=== PATIENT | female | born 1985 | race Caucasian/White ===

== ENCOUNTER 2019-06-23 23:03 | Emergency (ER) | payer SELFPAY ==
--- NOTE | 2019-06-23 23:20 | EDM.PDOC ---
ED HPI GENERAL MEDICAL PROBLEM - General Chief Complaint: [employer] Problem Stated Complaint: POSSIBLE MISCARRIAGE Time Seen by Provider: 06/23/19 23:17 Source of Information: Reports: Patient History Limitations: Reports: No Limitations - History of Present Illness INITIAL COMMENTS - FREE TEXT/NARRATIVE: History of present illness: [Patient is a G3, P2 who presents with suspected miscarriage. She states that she estimates that she is about 8 weeks by date. She is supposed to have an ultrasound next week. She started having bleeding with clots, heavier than a period, around 5 PM this evening. She has some associated cramping, seems to be generalized in the lower abdomen, no specific or unilateral pain associated with it. Denies previous miscarriage or . Denies any known clotting or bleeding disorders. Denies chest pain, shortness of breath, fever, known COVID-19 exposure.] Review of systems: As per history of present illness and below otherwise all systems reviewed and negative. Past medical history: As per history of present illness and as reviewed below otherwise noncontributory. Surgical history: As per history of present illness and as reviewed below otherwise noncontributory. Social history: No reported history of drug or alcohol abuse. Family history: As per history of present illness and as reviewed below otherwise noncontributory. Physical exam: General: Awake, alert, no acute distress, A&O X3. HEENT: Atraumatic, normocephalic, pupils reactive, negative for conjunctival pallor or scleral icterus, mucous membranes moist, throat clear, neck supple, nontender, trachea midline. Lungs: Clear to auscultation, breath sounds equal bilaterally, chest nontender. Heart: RRR, normal S1S2, no JVD. Abdomen: Soft, nondistended, nontender. Negative for masses or hepatosplenomegaly. Negative for costovertebral tenderness. Pelvis: Stable nontender. Genitourinary: Warehouse Checker: ELISSA Major. Pelvic exam shows dark red blood with clots slowly oozing from cervical os. no bright red blood or vaginal lesions noted. Rectal: Deferred. Extremities: Atraumatic, no edema, Neurovascular unremarkable. Neuro: Motor and sensory grossly intact throughout. Exam nonfocal. Diagnostics: [] Therapeutics: [] Impression: [] Plan: [] Definitive disposition and diagnosis as appropriate pending reevaluation and review of above. abdomen Pain Score (Numeric/FACES): 4 - Related Data Allergies Allergy/AdvReac Type Severity Reaction Status Date / Time No Known Allergies Allergy Verified 06/23/19 23:18 Home Meds: Home Meds Nitrofurantoin Monohyd/M-Cryst [Macrobid 100 mg Capsule] 100 mg PO BID #10 capsule 06/24/19 [Rx] Past Medical History - Past Health History Medical/Surgical History: Denies Medical/Surgical History - Infectious Disease History Infectious Disease History: Reports: Chicken Pox Social & Family History - Family History Family Medical History: Noncontributory - Caffeine Use Caffeine Use: Reports: Coffee ED ROS GENERAL - Review of Systems Review Of Systems: Comprehensive ROS is negative, except as noted in HPI. ED EXAM - Physical Exam Exam: See Below (see h and p) Course - Vital Signs Text/Narrative:: Ultrasound suggest the patient is undergoing a miscarriage. Thickened endometrial stripe. Appears to have products of conception near the cervix. No evidence for ectopic . Pelvic exam performed is also consistent with a miscarriage, shows dark blood with clots slowly oozing from cervical office. Remainder the patient's blood work is largely unremarkable. Her vital signs are reassuring, she is otherwise well-appearing and nontoxic. I informed her that she needed to get repeat quantitative hCG testing done in about 48 hours. Her level here today was about 3200. Her Rh status is negative. She received a dose of RhoGam here. I also encouraged her to follow-up with [employer] , she has an appointment scheduled in 2 weeks, I told her she should try and have one scheduled sooner if possible. Notably there is any indication for admission at this time. Strict return precautions were provided. Should she develop new or worsening symptoms including brisk vaginal bleeding, severe pain , syncope, high fever, etc. Urinalysis was positive for nitrites. I informed the patient that I would send over prescription to cover possible UTI, although I believe it is likely just a contaminant from her miscarriage. Patient understands the plan and is agreeable with it and well-appearing at the time of discharge. Last Recorded V/S: Last Vital Signs Temp 36.5 C 06/24/19 01:12 Pulse 88 06/24/19 01:12 Resp 17 06/24/19 01:12 BP 109/61 06/24/19 01:12 Pulse Ox 97 06/23/19 23:13 - Orders/Labs/Meds Labs: Laboratory Tests 06/23/19 06/23/19 06/23/19 Range/Units 23:16 23:27 23:27 WBC 9.55 (4.0-11.0) K/uL RBC 4.33 (4.30-5.90) M/uL Hgb 13.5 (12.0-16.0) g/dL Hct 40.5 (36.0-46.0) % MCV 93.5 (80.0-98.0) fL MCH 31.2 (27.0-32.0) pg MCHC 33.3 (31.0-37.0) g/dL RDW Std Deviation 45.6 (28.0-62.0) fl RDW Coeff of Stacy 13 (11.0-15.0) % Plt Count 220 (150-400) K/uL MPV 9.90 (7.40-12.00) fL Neut % (Auto) 73.6 (48.0-80.0) % Lymph % (Auto) 17.7 (16.0-40.0) % [place] % (Auto) 6.8 (0.0-15.0) % Eos % (Auto) 1.7 (0.0-7.0) % Baso % (Auto) 0.2 (0.0-1.5) % Neut # (Auto) 7.0 H (1.4-5.7) K/uL Lymph # (Auto) 1.7 (0.6-2.4) K/uL [place] # (Auto) 0.7 (0.0-0.8) K/uL Eos # (Auto) 0.2 (0.0-0.7) K/uL Baso # (Auto) 0.0 (0.0-0.1) K/uL Nucleated RBC % 0.0 /100WBC Nucleated RBCs # 0 K/uL Sodium 138 (136-145) mmol/L Potassium 3.7 (3.5-5.1) mmol/L Chloride 102 (98-107) mmol/L Carbon Dioxide 23.3 (21.0-32.0) mmol/L BUN 8 (7.0-18.0) mg/dL Creatinine 0.6 (0.6-1.0) mg/dL Est Cr Clr Drug Dosing 106.46 mL/min Estimated GFR (MDRD) > 60.0 ml/min Glucose 127 H (74-106) mg/dL Calcium 8.8 (8.5-10.1) mg/dL HCG, Quant 3208.0 mIU/mL Urine Color RED Urine Appearance SLT CLOUDY Urine pH 5.0 (5.0-8.0) Ur Specific [place] >= 1.030 (1.001-1.035) Urine Protein 100 H (NEGATIVE) mg/dL Urine Glucose (UA) NEGATIVE (NEGATIVE) mg/dL Urine Ketones 15 H (NEGATIVE) mg/dL Urine Occult Blood LARGE H (NEGATIVE) Urine Nitrite POSITIVE H (NEGATIVE) Urine Bilirubin NEGATIVE (NEGATIVE) Urine Urobilinogen 1.0 (<2.0) EU/dL Ur Leukocyte Esterase SMALL H (NEGATIVE) Urine RBC TOO NUMEROUS TO CT H (0-2/HPF) Urine WBC 0-5 (0-5/HPF) Ur Epithelial Cells OCCASIONAL (NONE-FEW) Urine Bacteria FEW (NEGATIVE) Urinalysis Comment Blood Type Antibody Screen Rhogam Indicated 06/23/19 Range/Units 23:27 WBC (4.0-11.0) K/uL RBC (4.30-5.90) M/uL Hgb (12.0-16.0) g/dL Hct (36.0-46.0) % MCV (80.0-98.0) fL MCH (27.0-32.0) pg MCHC (31.0-37.0) g/dL RDW Std Deviation (28.0-62.0) fl RDW Coeff of Stacy (11.0-15.0) % Plt Count (150-400) K/uL MPV (7.40-12.00) fL Neut % (Auto) (48.0-80.0) % Lymph % (Auto) (16.0-40.0) % [place] % (Auto) (0.0-15.0) % Eos % (Auto) (0.0-7.0) % Baso % (Auto) (0.0-1.5) % Neut # (Auto) (1.4-5.7) K/uL Lymph # (Auto) (0.6-2.4) K/uL [place] # (Auto) (0.0-0.8) K/uL Eos # (Auto) (0.0-0.7) K/uL Baso # (Auto) (0.0-0.1) K/uL Nucleated RBC % /100WBC Nucleated RBCs # K/uL Sodium (136-145) mmol/L Potassium (3.5-5.1) mmol/L Chloride (98-107) mmol/L Carbon Dioxide (21.0-32.0) mmol/L BUN (7.0-18.0) mg/dL Creatinine (0.6-1.0) mg/dL Est Cr Clr Drug Dosing mL/min Estimated GFR (MDRD) ml/min Glucose (74-106) mg/dL Calcium (8.5-10.1) mg/dL HCG, Quant mIU/mL Urine Color Urine Appearance Urine pH (5.0-8.0) Ur Specific [place] (1.001-1.035) Urine Protein (NEGATIVE) mg/dL Urine Glucose (UA) (NEGATIVE) mg/dL Urine Ketones (NEGATIVE) mg/dL Urine Occult Blood (NEGATIVE) Urine Nitrite (NEGATIVE) Urine Bilirubin (NEGATIVE) Urine Urobilinogen (<2.0) EU/dL Ur Leukocyte Esterase (NEGATIVE) Urine RBC (0-2/HPF) Urine WBC (0-5/HPF) Ur Epithelial Cells (NONE-FEW) Urine Bacteria (NEGATIVE) Urinalysis Comment Blood Type O NEGATIVE Antibody Screen NEGATIVE Rhogam Indicated YES Departure - Departure Time of Disposition: 01:17 Disposition: Home, Self-Care 01 Clinical Impression: Incomplete miscarriage, Urinary tract infection - Discharge Information Prescriptions: Nitrofurantoin Monohyd/M-Cryst [Macrobid 100 mg Capsule] 100 mg PO BID #10 capsule Instructions: Incomplete Miscarriage Referrals: PCP,None [Primary Care Provider] - Forms: ED Department Discharge Additional Instructions: [facility] [address] [place] [id number] [facility] [address] [place] [id number] Follow-up with [employer] and PCP. Take all medications as prescribed. Return to the ER in about 48 hours for repeat blood test for quantitative hCG level. Or, if possible you can arrange to have this blood test done in the outpatient setting. Return to ED with any new or worsening symptoms. The following information is given to patients seen in the emergency department who are being discharged to home. This information is to outline your options for follow-up care. We provide all patients seen in our emergency department with a follow-up referral. The need for follow-up, as well as the timing and circumstances, are variable depending upon the specifics of your emergency department visit. If you don't have a primary care physician on staff, we will provide you with a referral. We always advise you to contact your personal physician following an emergency department visit to inform them of the circumstance of the visit and for follow-up with them and/or the need for any referrals to a consulting specialist. The emergency department will also refer you to a specialist when appropriate. This referral assures that you have the opportunity for follow-up care with a specialist. All of these measure are taken in an effort to provide you with optimal care, which includes your follow-up. Under all circumstances we always encourage you to contact your private physician who remains a resource for coordinating your care. When calling for follow-up care, please make the office aware that this follow-up is from your recent emergency room visit. If for any reason you are refused follow-up, please contact the [facility] Emergency Department at and asked to speak to the emergency department charge nurse. Sepsis Event Note - Focused Exam Vital Signs: Vital Signs Temp Temp Pulse Resp BP Pulse Ox 06/24/19 01:12 36.5 C 88 17 109/61 06/23/19 23:13 36.3 C 105 H 18 139/85 97 Date Exam was Performed: 06/24/19 Time Exam was Performed: 01:18
[2019-06-24 00:19] LABS: BLOOD UREA NITROGEN,BUN 8 mg/dL (7.0-18.0); CARBON DIOXIDE,CO2 23.3 mmol/L (21.0-32.0); CHLORIDE,CL 102 mmol/L (98-107); GLUCOSE RANDOM 127 mg/dL (74-106); POTASSIUM,K 3.7 mmol/L (3.5-5.1); SODIUM,NA 138 mmol/L (136-145)
--- NOTE | 2019-06-24 01:04 | US ---
INDICATION: , bleeding and cramping. TECHNIQUE: Ultrasound OB pelvis transabdominal and transvaginal. Real-time ramirez-scale imaging of the pelvis was performed. COMPARISON: None FINDINGS: The uterus is anteverted with a 1.7 centimeter anterior intramural fibroid. Endometrium measures 14 millimeters. Within the endocervical canal there is an irregular fluid collection which could contain a yolk sac. No definite embryo seen. Maternal right ovary measures 2.1 x 1.6 x 2.6 centimeters with normal blood flow maternal left ovary contains a 1.3 centimeter simple cyst. Normal blood flow maternal left ovary. IMPRESSION: Thickened endometrium with fluid collection in the endocervical canal. This appears somewhat irregular and there could even be a questionable yolk sac although this is not definitive. Question miscarriage in progress although correlation with serial quantitative HCG suggested. In clinically confusing cases, follow-up ultrasound in 7-10 days recommended. Dictated by Carlton Prescott MD @ Jun 24 2019 12:51AM Signed by Dr. Carlton Prescott @ Jun 24 2019 1:02AM
[2019-06-24 01:27] VITALS: BP 125/81; PULSE 110
== END 2019-06-24 01:40 | disposition home or self-care (01) ==
LOC: MW.ED 23:03
DX: O03.4 Incomplete spontaneous abortion without complication (principal); O23.41 Unspecified infection of urinary tract in pregnancy, first trimester; Z3A.08 8 weeks gestation of pregnancy
CPT/HCPCS: 36415; 76801; 80048; 81001; 84702; 85025; 86850; 86900; 86901; 99284; J2792; 36430; 99283